=== PATIENT | male | born 1965 | race African-American/Black ===

== ENCOUNTER 2021-09-11 13:34 | Emergency (ER) | payer MEDICARE, SELFPAY ==
[2021-09-11 13:36] VITALS: BP 177/83; PULSE 93; RESP 18; TEMP 36.2; O2SAT 99
--- NOTE | 2021-09-11 13:58 | ED.SKABFB ---
HPI - Skin/Abscess/Foreign Bdy General Chief complaint: Skin/Abscess/Foreign Body Stated complaint: LUE fistula itching Time Seen by Provider: 09/11/21 13:47 History of Present Illness HPI narrative: 56-year-old male presents to the emergency room with acute onset of pruritic rash to the left upper forearm/left antecubital area. States put some Benadryl cream on the affected area which exacerbated the pruritus. Noticed rash developed following completion of dialysis yesterday Review of Systems Review of Systems: CONSTITUTIONAL: Denies fever, chills, or sweats. EYES: Denies visual changes, redness, or discharge. ENT: Denies rhinorrhea, congestion, sore throat, or otalgia. CARDIOVASCULAR: Denies chest pain, palpitations, or edema. RESPIRATORY: Denies cough or dyspnea. GASTROINTESTINAL: Denies abdominal pain, nausea, vomiting, or diarrhea. GENITOURINARY: Denies dysuria or hematuria. SKIN: Pruritic rash to left elbow. MUSCULOSKELETAL: Denies back pain, joint pain, or myalgia. NEUROLOGIC: Denies headache, numbness, dizziness, or weakness. PSYCHIATRIC: Denies anxiety or depression. Exam Narrative: GENERAL: Well-appearing, well-nourished, and in no acute distress. HEAD: Normocephalic, atraumatic. EYES: PERRLA and EOMI. ENT: Nares clear, no rhinorrhea or epistaxis. Mucous membranes moist. NECK: Supple. No adenopathy or masses. No carotid bruits or JVD CHEST: Clear to auscultation. No respiratory distress. No wheezes rales or rhonchi HEART: Regular rate and rhythm. No murmur heard. Normal peripheral pulses. ABDOMEN: Soft, nontender, nondistended, normal active bowel sounds. EXTREMITIES: Normal range of motion. No edema. SKIN: Left antecubital: Erythematous weeping pruritic area to the skin fold NEURO: No focal deficits. Alert and oriented x3. PSYCH: Normal mood and affect. Course Vital Signs Vital signs: Vital Signs Temperature 36.2 C L 09/11/21 13:36 Pulse Rate 93 09/11/21 13:36 Respiratory Rate 18 09/11/21 13:36 Blood Pressure 177/83 H 09/11/21 13:36 Pulse Oximetry 99 09/11/21 13:36 Temperature 36.2 C L 09/11/21 13:36 Pulse Rate 93 09/11/21 13:36 Respiratory Rate 18 09/11/21 13:36 Blood Pressure 177/83 H 09/11/21 13:36 Pulse Oximetry 99 09/11/21 13:36 Discharge Plan Discharge Clinical Impression: Candidal intertrigo, Dermatophytosis Patient Disposition: Home, Self-Care Condition: Stable Instructions: Antibiotic Form, Tinea Corporis (ED) Prescriptions: New terbinafine HCl 1 % cream 1 applic topical BID Qty: 30 RF: 0 hydroxyzine HCl 10 mg tablet 10 mg PO BID PRN (Reason: itching) Qty: 10 RF: 0 Follow-up/Referrals: PHYSICIAN NOT ON STAFF,NONSTAFF [Non-Staff] -
== END 2021-09-11 14:26 | disposition home or self-care (01) ==
LOC: ANHED 14:19
PROVIDERS: Emergency Provider Nurse Practitioner Family
DX: B37.2 Candidiasis of skin and nail (principal); B35.4 Tinea corporis
CPT/HCPCS: 99283